=== PATIENT | female | born 1955 | race Caucasian/White ===

== ENCOUNTER → 2019-11-19 12:24 | Outpatient (CLI) | payer MEDICAID, SELFPAY ==
--- NOTE | 2019-11-19 12:32 | US_ITS ---
PROCEDURE: US FNA THYROID CLINICAL INDICATION: RT THYROID NODULE Dominant suspicious nodule on right COMPARISON: No exams were available for comparison TECHNIQUE: Following obtaining informed consent, using aseptic technique and local anesthesia with buffered lidocaine, fine-needle aspiration was performed of the nodule of interest using sonographic guidance. 3 passes were made into the nodule with a 25-gauge needle. Specimen was given to cytology. FINDINGS: Patient tolerated the procedure well without evidence of immediate complications. CYTOLOGY: Suspicious for a follicular neoplasm, Hurthle cell type IMPRESSION: Successful sonographic guided thyroid FNA on right suspicious for follicular neoplasm The patient tolerated the procedure well without evidence of immediate complications and left the ultrasound suite in stable condition. Dictated by: Irving Hansen MD 11/27/2019 14:28 Electronically signed by Irving Hansen MD in [place] 11/27/2019 14:28
== END ==
PROVIDERS: PCP Nurse Practitioner Family; Visit Provider Otolaryngology
DX: D34 Benign neoplasm of thyroid gland (principal)
CPT/HCPCS: 10005; 76942